=== PATIENT | male | born 1970 | race Caucasian/White ===

== ENCOUNTER 2022-05-12 18:00 | Emergency (ER) | payer OTHER ==
[~2022-05-12] VITALS: Ht 193 cm; Wt 113.4 kg
[2022-05-12 18:45] LABS: BASOPHILS % (AUTO) 0.3 % (0.0-5.0); EOSINOPHILS % (AUTO) 2.1 % (0.0-8.0); HEMATOCRIT 40.4 % (42-54); LYMPHOCYTES % (AUTO) 11.6 % (21.0-51.0); MEAN CORPUSCULAR HEMOGLOBIN 29.3 pg (27.0-33.0); MEAN CORPUSCULAR HGB CONC 33.2 g/dL (32.0-36.0); MEAN CORPUSCULAR VOLUME 88.2 fL (79-99); MONOCYTES % (AUTO) 4.3 % (3.0-13.0); NEUTROPHILS % (AUTO) 81.1 % (40.0-77.0); PLATELET COUNT (AUTO) 421 K/uL (130-400); RED BLOOD CELL COUNT(AUTO) 4.58 MIL/uL (4.50-6.20); RED CELL DISTRIBUTION WIDTH 13.5 % (11.0-15.5); WHITE BLOOD COUNT (AUTO) 11.5 K/uL (4.8-10.8)
[2022-05-12] MEDS ORDERED: KETOROLAC 15MG/ML VIAL (15MG/ML) IV ONE (19:00)
[2022-05-12] MEDS ORDERED: ACETAMINOPHEN 500 MG TABLET PO ONE (19:00)
[2022-05-12] MEDS ORDERED: 0.9%NACL 1000ML 1,000 ML IV ONE (19:00)
[2022-05-12 19:09] LABS: ALBUMIN 2.6 g/dL (3.5-5.0); CREATININE 0.9 mg/dL (0.5-1.5); TOTAL PROTEIN, SERUM 6.7 g/dL (6.0-8.3)
[2022-05-12 19:10] LABS: POTASSIUM 2.8 mmol/L (3.5-5.1)
[2022-05-12 19:11] LABS: APPEARANCE,URINE CLOUDY (CLEAR); BILIRUBIN,URINE NEGATIVE (NEGATIVE); COLOR,URINE YELLOW (YELLOW); GLUCOSE, URINE (UA) NEGATIVE (NEGATIVE); KETONES,URINE NEGATIVE (NEGATIVE); LEUKOCYTE ESTERASE ,URINE NEGATIVE Leu/uL (NEGATIVE); NITRATE,URINE NEGATIVE (NEGATIVE); PROTEIN,URINE 70 mg/dL (NEGATIVE); UROBILINOGEN,URINE 3 mg/dL (0.2-1.0)
[2022-05-12] MEDS ORDERED: POTASSIUM CHLORIDE 20 MEQ/100 ML BAG IV SCH (19:17)
[2022-05-12 19:19] LABS: BACTERIA,URINE RARE /HPF (None Seen); MUCUS,URINE MANY LPF (None Seen); OTHER CASTS, URINE 2 /LPF (None Seen); SQUAMOUS EPITHELIAL CELL,UR RARE /HPF (0-2)
[2022-05-12] MEDS ORDERED: MAGNESIUM 2GM PREMIX 50ML 50 ML IV ONE (21:22)
[2022-05-12] MEDS ORDERED: MAGNESIUM OXIDE 400 MG TABLET PO ONE (21:29)
[2022-05-12] MEDS ORDERED: MAGNESIUM 2GM PREMIX 50ML 50 ML IV SCH (21:30)
[2022-05-12] MEDS ORDERED: MAGNESIUM OXIDE 400 MG TABLET PO SCH (21:30)
[2022-05-12 22:03] VITALS: BP 146/85
== END 2022-05-12 23:01 | disposition home or self-care (01) ==
LOC: EDH 18:00
DX: B34.9 Viral infection, unspecified (principal); E87.6 Hypokalemia; E86.0 Dehydration; J45.909 Unspecified asthma, uncomplicated; F17.200 Nicotine dependence, unspecified, uncomplicated; Z20.822 Contact with and (suspected) exposure to COVID-19
CPT/HCPCS: 99285; 96365; 71045; 87635; 96361; 96375; 83735; 84484; 80053; 85025; 87040 ×2; 87088; 87804 ×2; 83605; 86000; 81001; 36415; 93005; 84145; C9803; J3475; J7030; J1885